=== PATIENT | female | born 1940 | race African-American/Black ===

== ENCOUNTER 2019-10-17 14:21 | Inpatient (IN) | payer MEDICARE, MEDICAID ==
[~2019-10-17] VITALS: Ht 167.6 cm; Wt 82.1 kg
[~2019-10-17 14:21] MED LIST: ASPI-1497 PO; ATOR-2 PO; CARV25TA47 PO; DOCU-138 PO; FERR-63 PO; GLIP5TAB12 PO; LOSA100T32 PO; PENT100C9 PO
[2019-10-17] MEDS ORDERED: SODIUM CHLORIDE 0.9% 500 ML IV ONE (14:45)
[2019-10-17 15:13] LABS: BASOPHILS % 0.4 % (0.0-2.0); EOSINOPHILS % 0.4 % (0.0-5.0); HEMATOCRIT. 37.2 % (36.0-48.0); HEMOGLOBIN. 12.2 g/dL (12.0-16.0); LYMPHOCYTES % 20.7 % (20.0-50.0); MEAN CORPUSCULAR HEMOGLOBIN 28.7 pg (28.0-32.0); MEAN CORPUSCULAR VOLUME 87.8 fL (81.0-99.0); MEAN PLATELET VOLUME 7.8 fl (7.4-10.4); MONOCYTES % 8.5 % (2.0-8.0); PLATELET 319 x1000/uL (130-400); RED BLOOD CELL COUNT 4.23 mill/uL (4.2-5.4); RED CELL DISTRIBUTION WIDTH 15.7 % (11.6-14.6)
[2019-10-17 15:16] LABS: CHLORIDE 107 mEq/L (98-107)
[2019-10-17 15:25] LABS: PROTHROMBIN TIME 10.9 sec (9.6-11.0)
[2019-10-17 15:40] LABS: CLARITY URINE TURBID (CLEAR); COLOR URINE RED (YELLOW); KETONES URINE TRACE (NEGATIVE); LEUKOCYTE ESTERASE URINE 3+ (NEGATIVE); NITRITE URINE NEGATIVE (NEGATIVE); OCCULT BLOOD URINE 3+ (NEGATIVE); PH URINE 7.5 (4.5-8.0); PROTEIN URINE 3+ (NEGATIVE); SPECIFIC GRAVITY URINE 1.015 (1.005-1.030); UROBILINOGEN URINE 0.2 E.U./dL (0.2-1.0)
[2019-10-17] MEDS ORDERED: CEFTRIAXONE 1 G PREMIX 50 ML IV ONE (16:45)
[2019-10-18] VITALS (7 sets, daily range): BP systolic 113–142; BP diastolic 61–98
[2019-10-18] MEDS ORDERED: DEXTROSE 50% WATER 50ML SYRINGE IV PRN
[2019-10-18] MEDS ORDERED: ACETAMINOPHEN 325MG TABLET PO PRN
[2019-10-18] MEDS: BLOOD SUGAR DIAGNOSTIC STRIP TEST SCH ×4 (06:20→20:42)
[2019-10-18] MEDS: INSULIN LISPRO 100 UNITS/ML SUBCUT SCH ×3 (12:15→20:42)
[2019-10-18] MEDS ORDERED: SODIUM CHLORIDE 0.9% 1,000 ML IV SCH (13:00)
[2019-10-18 13:31] LABS: BASOPHILS % 0.5 % (0.0-2.0); EOSINOPHILS % 1.3 % (0.0-5.0); HEMATOCRIT. 35.9 % (36.0-48.0); HEMOGLOBIN. 11.8 g/dL (12.0-16.0); LYMPHOCYTES % 29.7 % (20.0-50.0); MEAN CORPUSCULAR HEMOGLOBIN 28.8 pg (28.0-32.0); MEAN CORPUSCULAR VOLUME 87.9 fL (81.0-99.0); MEAN PLATELET VOLUME 7.6 fl (7.4-10.4); MONOCYTES % 11.5 % (2.0-8.0); PLATELET 296 x1000/uL (130-400); RED BLOOD CELL COUNT 4.09 mill/uL (4.2-5.4); RED CELL DISTRIBUTION WIDTH 16.1 % (11.6-14.6)
[2019-10-18] MEDS: SODIUM BICARBONATE 50 MEQ in SODIUM CHLORIDE 0.45% 950 ML IV SCH (16:39)
[2019-10-18] MEDS ORDERED: CEFTRIAXONE 1,000 MG in DEXTROSE 5% WATER 50 ML IV SCH (18:00)
[2019-10-18] MEDS ORDERED: SODIUM POLYSTYRENE SULFONATE 15 G/60 ML BOT PO NR (20:00)
[2019-10-18] MEDS: AMLODIPINE 2.5MG TABLET PO SCH (20:51)
[2019-10-18] MEDS: ATORVASTATIN CALCIUM 20MG TABLET PO SCH (20:51)
[2019-10-18] MEDS: HEPARIN 5000 UNITS/ML VIAL SUBCUT SCH (20:51)
[2019-10-18] MEDS ORDERED: SENNOSIDES/DOCUSATE SOD 8.6/50MG TABLET PO PRN (21:00)
[2019-10-18] MEDS ORDERED: DOCUSATE SODIUM 100MG CAPSULE PO PRN (21:00)
[2019-10-18] MEDS ORDERED: MAGNESIUM HYDROXIDE 400MG/5ML 30ML UDC PO PRN (21:00)
[2019-10-18 21:54] LABS: BG BASE EXCESS -12.1 mmol/L (-2.0-2.0); BG CARBOXYHEMOGLOBIN 1.1 % (0.5-1.5); BG DEOXYHEMOGLOBIN 3.4 % (0.0-5.0); BG FRACTION INSPIRED OXYGEN 21; BG HCO3 ACT 11.1 mmol/L (22.0-26.0); BG METHEMOGLOBIN 0.3 % (0.0-1.5); BG OXYGEN SATURATION 96.6 % (92.0-98.5); BG OXYHEMOGLOBIN 95.2 % (94.0-97.0); BG PCO2 19.8 mmHg (35.0-45.0); BG PH 7.365 (7.350-7.450); BG SAMPLE SITE LEFT RADIAL; BG TOTAL HEMOGLOBIN 12.1 g/dL (12.0-18.0); BG VENT MODE ROOM AIR
[2019-10-19] VITALS: BP 138/79
[2019-10-19] MEDS: SODIUM BICARBONATE 50 MEQ in SODIUM CHLORIDE 0.45% 950 ML IV SCH ×2 (03:35→11:55)
[2019-10-19 04:00] VITALS: BP 127/59
[2019-10-19] MEDS: BLOOD SUGAR DIAGNOSTIC STRIP TEST SCH ×4 (06:15→20:52)
[2019-10-19] MEDS: INSULIN LISPRO 100 UNITS/ML SUBCUT SCH ×4 (06:21→20:52)
[2019-10-19 07:48] LABS: BASOPHILS % 0.5 % (0.0-2.0); EOSINOPHILS % 2.1 % (0.0-5.0); HEMATOCRIT. 34.7 % (36.0-48.0); HEMOGLOBIN. 11.2 g/dL (12.0-16.0); LYMPHOCYTES % 32.9 % (20.0-50.0); MEAN CORPUSCULAR HEMOGLOBIN 28.5 pg (28.0-32.0); MEAN CORPUSCULAR VOLUME 88.2 fL (81.0-99.0); MONOCYTES % 12.1 % (2.0-8.0); NEUTROPHILS % 52.4 % (40.0-76.0); PLATELET 248 x1000/uL (130-400); RED BLOOD CELL COUNT 3.93 mill/uL (4.2-5.4); RED CELL DISTRIBUTION WIDTH 15.7 % (11.6-14.6)
[2019-10-19 08:00] VITALS: BP 135/72
[2019-10-19] MEDS: HEPARIN 5000 UNITS/ML VIAL SUBCUT SCH ×2 (09:43→20:51)
[2019-10-19] MEDS: AMLODIPINE 2.5MG TABLET PO SCH ×2 (09:44→20:50)
[2019-10-19 12:00] VITALS: BP 118/73
[2019-10-19 16:00] VITALS: BP 128/70
[2019-10-19 20:00] VITALS: BP 141/72
[2019-10-19] MEDS: ATORVASTATIN CALCIUM 20MG TABLET PO SCH (20:50)
[2019-10-20] VITALS (7 sets, daily range): BP systolic 117–138; BP diastolic 47–72
[2019-10-20] MEDS: SODIUM BICARBONATE 50 MEQ in SODIUM CHLORIDE 0.45% 950 ML IV SCH ×2 (00:42→07:00)
[2019-10-20] MEDS: INSULIN LISPRO 100 UNITS/ML SUBCUT SCH ×4 (06:56→20:27)
[2019-10-20] MEDS: BLOOD SUGAR DIAGNOSTIC STRIP TEST SCH ×4 (06:56→20:08)
[2019-10-20 07:41] LABS: BASOPHILS % 0.5 % (0.0-2.0); EOSINOPHILS % 2.7 % (0.0-5.0); HEMOGLOBIN. 9.3 g/dL (12.0-16.0); LYMPHOCYTES % 43.3 % (20.0-50.0); MEAN CORPUSCULAR HEMOGLOBIN 28.7 pg (28.0-32.0); MEAN CORPUSCULAR VOLUME 86.3 fL (81.0-99.0); MEAN PLATELET VOLUME 7.7 fl (7.4-10.4); MONOCYTES % 8.2 % (2.0-8.0); NEUTROPHILS % 45.3 % (40.0-76.0); PLATELET 224 x1000/uL (130-400); RED BLOOD CELL COUNT 3.24 mill/uL (4.2-5.4); RED CELL DISTRIBUTION WIDTH 15.4 % (11.6-14.6)
[2019-10-20] MEDS: AMLODIPINE 2.5MG TABLET PO SCH ×2 (08:44→20:26)
[2019-10-20] MEDS: HEPARIN 5000 UNITS/ML VIAL SUBCUT SCH ×2 (08:44→20:26)
[2019-10-20] MEDS: DEXT 5%/0.45% NACL 1000ML 1,000 ML IV SCH ×2 (10:28→19:52)
[2019-10-20] MEDS ORDERED: AMLO2.5T45 PO (13:09)
[2019-10-20 19:09] LABS: ANTI-NUCLEAR ANTIBODIES DIRECT Positive (Negative)
[2019-10-20] MEDS: ATORVASTATIN CALCIUM 20MG TABLET PO SCH (20:26)
== END 2019-10-20 21:05 | disposition home health service (06) | DRG 463 ==
LOC: ER 14:21 → 5WST 16:46 → EDBEDREQ 16:49 → ENRESERV 20:31
PROVIDERS: ADMIT Internal Medicine; ATTEND Internal Medicine
DX: N13.6 Pyonephrosis (principal); I12.9 Hypertensive chronic kidney disease with stage 1 through stage 4 chronic kidney disease, or unspecified chronic kidney disease; N17.0 Acute kidney failure with tubular necrosis; E43 Unspecified severe protein-calorie malnutrition; E86.0 Dehydration; E87.1 Hypo-osmolality and hyponatremia; E87.5 Hyperkalemia; E11.22 Type 2 diabetes mellitus with diabetic chronic kidney disease; E87.2 Acidosis; R65.10 Systemic inflammatory response syndrome (SIRS) of non-infectious origin without acute organ dysfunction; N18.9 Chronic kidney disease, unspecified; E78.5 Hyperlipidemia, unspecified; Z87.442 Personal history of urinary calculi; Z85.528 Personal history of other malignant neoplasm of kidney; Z68.29 Body mass index [BMI] 29.0-29.9, adult; Z79.899 Other long term (current) drug therapy; Z79.84 Long term (current) use of oral hypoglycemic drugs; Z03.818 Encounter for observation for suspected exposure to other biological agents ruled out
CPT/HCPCS: 36415; 36600; 71045; 74176; 76770; 80048; 80053; 80061; 81003; 82375; 82550; 82570; 82805; 82962; 83036; 83605; 83735; 83880; 84156; 84484; 85025; 86038; 86160; 92610; 93005; 93306; 93970; 96365; 97116; 97162; 97166; 97530; 99285; J0696; J1644; J1815; J3490; J7030; J7040; J7060; U0003-CS